=== PATIENT | male | born 1975 | race Caucasian/White ===

== ENCOUNTER 2017-02-10 13:13 | Observation (INO) | payer BC ==
[~2017-02-10] VITALS: Ht 180.3 cm; Wt 78.6 kg
[~2017-02-10 13:13] MED LIST: DOCU-144 PO; FAMO40TA52 PO; LIDO30JE5 TOP; MAG355OR15 PO
[2017-02-10] MEDS ORDERED: ASPI-664 PO (14:03)
[2017-02-10] MEDS ORDERED: NITROGLYCERIN 2% 1 GM OINT PKT TD STA (14:21)
[2017-02-10] MEDS ORDERED: ASPIRIN 325 MG TAB PO STA (14:21)
--- NOTE | 2017-02-10 14:44 | RADRPT ---
PROCEDURE: XR Chest. CLINICAL INDICATION: chest pain TECHNIQUE: Single frontal view of the chest was obtained COMPARISON: 10/10/14 FINDINGS: The heart and mediastinum are within normal limits. The lungs are clear. There is no pleural effusion or pneumothorax. RPTAT: AA IMPRESSION: No acute disease. .Michael Lynne MD, MD Date Time Electronically viewed and signed by .Michael Lynne MD, on 02/10/2017 14:44 .S/
[2017-02-10 14:46] LABS: BASOPHIL # 0.1 10^3/ul (0.0-0.1); EOSINOPHILS # 0.6 10^3/ul (0.0-0.5); EOSINOPHILS % 6.2 % (0.0-7.0); HEMATOCRIT 41.7 % (42.0-52.0); HEMOGLOBIN 14.3 g/dl (14.0-18.0); LYMPHOCYTES # 1.9 10^3/ul (0.8-2.9); MEAN CORPUSCULAR HEMOGLOBIN 32.4 pg (29.0-33.0); MEAN CORPUSCULAR HGB CONC 34.3 g/dl (32.0-37.0); MEAN CORPUSCULAR VOLUME 94.3 fl (82.0-101.0); MONOCYTE # 1.1 10^3/ul (0.3-0.9); MONOCYTES % 12.3 % (0.0-11.0); PLATELET COUNT 228 10^3/UL (140-415); RED BLOOD COUNT 4.42 10^6/ul (4.70-6.10); RED CELL DISTRIBUTION WIDTH 12.3 % (11.5-14.5); WHITE BLOOD COUNT 8.8 10^3/ul (4.8-10.8)
[2017-02-10 15:05] LABS: ALANINE AMINOTRANSFERASE 43 IU/L (13-69); ALBUMIN 4.2 g/dl (3.3-4.9); ALBUMIN/GLOBULIN RATIO 1.31; ALKALINE PHOSPHATASE 105 IU/L (42-121); ANION GAP 11 (8-16); ASPARTATE AMINO TRANSFERASE 29 IU/L (15-46); BILIRUBIN,INDIRECT 0.2 mg/dl (0-1.1); BILIRUBIN,TOTAL 0.2 mg/dl (0.2-1.3); BLOOD UREA NITROGEN 10 mg/dl (7-20); CALCIUM 9.1 mg/dl (8.4-10.2); CARBON DIOXIDE 29 mmol/L (21-31); CHLORIDE 106 mmol/L (97-110); CREATININE 0.89 mg/dl (0.61-1.24); GLUCOSE 97 mg/dl (70-220); POTASSIUM 4.1 mmol/L (3.5-5.1); SODIUM 142 mmol/L (135-144); TOTAL PROTEIN 7.4 g/dl (6.1-8.1)
[2017-02-10 15:20] LABS: TROPONIN-I < 0.012 ng/ml (0.00-0.12)
[2017-02-10] MEDS ORDERED: ONDANSETRON 4 MG INJ IV PRN (16:00)
[2017-02-10] MEDS ORDERED: ACETAMINOPHEN 325 MG TAB PO PRN (16:00)
--- NOTE | 2017-02-10 16:04 | ERA ---
ER Documentation Chief Complaint Date/Time DATE: 02/10/17 TIME: 16:02 Chief Complaint CHEST PAIN X 1 WEEK HPI This a 41-year-old male who is having chest pain off and on for the past 3 days. He says chest pain described as a pressure with radiation up his left neck and gets sort of breath. He says the pain can occur at rest or with exertion. No cardiac history. Risk factors are smoking he does not know what his cholesterol is. He currently has no pain but says the pain is moderate in nature and seems to be getting a bit worse. He went to his primary care physician today here for evaluation ROS All systems reviewed and are negative except as per history of present illness. Medications Home Meds Reported Medications Aspirin (Low Dose Aspirin) 81 Mg Tablet.dr, 81 MG PO DAILY, #30 TAB 02/10/17 Discontinued Scripts Lidocaine 2% Jelly* (Xylocaine 2% Jelly*) 1 Applic Jel, 1 APPLIC TOP TID for PAIN, #1 TUB Prov:KARLIE MCCARTHY MD 07/24/15 Mag Hydrox/Al Hydrox/Simeth (Maalox Ms Liquid) 360 Ml Oral.susp, 2 TSP PO TID, # 24 OZ Prov:KARLIE MCCARTHY MD 07/24/15 Docusate Sodium* (Colace*) 100 Mg Capsule, 100 MG PO BID for CONSTIPATION, #30 CAP Prov:KARLIE MCCARTHY MD 07/24/15 Famotidine* (Famotidine*) 40 Mg Tablet, 40 MG PO DAILY, #30 TAB Prov:KARLIE MCCARTHY MD 07/24/15 Allergies Allergies: Coded Allergies: No Known Allergy (Unverified , 02/10/17) PMhx/Soc History of Surgery: No Anesthesia Reaction: No Hx Neurological Disorder: No Hx Respiratory Disorders: No Hx Cardiac Disorders: No Hx Psychiatric Problems: No Hx Miscellaneous Medical Probl: Yes (hemmroids ) Hx Alcohol Use: No Hx Substance Use: No Hx Tobacco Use: No Smoking Status: Never smoker FmHx Family History: No coronary disease Physical Exam Vitals Vital Signs Date Time Temp Pulse Resp B/P Pulse Ox O2 Delivery O2 Flow Rate FiO2 02/10/17 14:32 Nasal Cannula 2 02/10/17 13:19 98.0 99 18 125/75 98 Physical Exam Const: Well-developed, well-nourished Head: Atraumatic, normocephalic Eyes: Normal Conjunctiva, PERRLA, EOMI, normal sclera, no nystagmus ENT: Normal External Ears, Nose and Mouth, moist mucus membranes. Neck: Full range of motion. No meningismus, no lymphadenopathy. Resp: Clear to auscultation bilaterally, no wheezing, rhonchi, rales Cardio: Regular rate and rhythm, no murmurs, S1 S2 present Abd: Soft, non tender x 4, non distended. Normal bowel sounds, no guarding or rebound, no pulsitile abdominal masses or bruits Skin: No petechiae or rashes, no ecchymosis , no maculopapular rash Back: No midline or flank tenderness Ext: No cyanosis, or edema, FROM x 4, normal inspection, neurovascularly intact x 4 Neur: Awake and alert, STR 5/5 x 4, sensation intact x 4, no focal findings, cerebellum intact Psych: Normal Mood and Affect Result Diagram: 02/10/17 1435 02/10/17 1435 Results 24 hrs Laboratory Tests Test 02/10/17 14:35 White Blood Count 8.810^3/ul Red Blood Count 4.4210^6/ul Hemoglobin 14.3g/dl Hematocrit 41.7% Mean Corpuscular Volume 94.3fl Mean Corpuscular Hemoglobin 32.4pg Mean Corpuscular Hemoglobin Concent 34.3g/dl Red Cell Distribution Width 12.3% Platelet Count 08247^3/UL Mean Platelet Volume 10.0fl Neutrophils % 57.0% Lymphocytes % 22.0% Monocytes % 12.3% Eosinophils % 6.2% Basophils % 1.0% Nucleated Red Blood Cells % 0.0/100WBC Neutrophils # 5.010^3/ul Lymphocytes # 1.910^3/ul Monocytes # 1.110^3/ul Eosinophils # 0.610^3/ul Basophils # 0.110^3/ul Nucleated Red Blood Cells # 0.010^3/ul Sodium Level 142mmol/L Potassium Level 4.1mmol/L Chloride Level 106mmol/L Carbon Dioxide Level 29mmol/L Anion Gap 11 Blood Urea Nitrogen 10mg/dl Creatinine 0.89mg/dl Glucose Level 97mg/dl Calcium Level 9.1mg/dl Total Bilirubin 0.2mg/dl Direct Bilirubin 0.00mg/dl Indirect Bilirubin 0.2mg/dl Aspartate Amino Transf (AST/SGOT) 29IU/L Alanine Aminotransferase (ALT/SGPT) 43IU/L Alkaline Phosphatase 105IU/L Troponin I < 0.012ng/ml Total Protein 7.4g/dl Albumin 4.2g/dl Globulin 3.20g/dl Albumin/Globulin Ratio 1.31 Current Medications Medications (Trade) Dose Ordered Sig/Erick Route PRN Reason Start Time Stop Time Status Last Admin Dose Admin Aspirin (Aspirin) 325 mg ONCE STAT PO 02/10/17 14:21 02/10/17 14:23 DC 02/10/17 14:34 Nitroglycerin (Nitroglycerin 2% Oint) 1 inch ONCE STAT TD 02/10/17 14:21 02/10/17 14:23 DC 02/10/17 14:35 Procedures/MDM PROCEDURE: XR Chest. CLINICAL INDICATION: chest pain TECHNIQUE: Single frontal view of the chest was obtained COMPARISON: 10/10/14 FINDINGS: The heart and mediastinum are within normal limits. The lungs are clear. There is no pleural effusion or pneumothorax. RPTAT: AA IMPRESSION: No acute disease. .Michael Lynne MD, MD Date Time Electronically viewed and signed by .Michael Lynne MD, MD on 02/10/2017 14: 44 .S/ CC: MANDA BAILEY DO EKG: Rate/Rhythm: Normal sinus rhythm, inverted T-wave in lead III QRS, ST, QT: NORMAL NM, QRS, QT] Impression: ab NORMAL EKG Patient's symptoms are concerning for cardiac cause will require inpatient workup and continuous monitoring. Further w/u for ischemia, arrhythmia, PE or dissection will be deferred to the inpatient team. Accepting Care Team: Current data and ongoing care discussed. Time: Time of admission Primary Provider: Cristiano Consulting: NICOLE Outstanding Data: none Departure Diagnosis: Primary Impression: Chest pain Qualified Code: R07.9 - Chest pain, unspecified type Condition: Stable LYNN,APOSTOLOS A. DO Feb 10, 2017 16:04
[2017-02-10 16:23] VITALS: TEMP 98.4
[2017-02-10 16:45] VITALS: BP 111/59; PULSE 81; RESP 18
[2017-02-10] MEDS ORDERED: ACETAMINOPHEN 500 MG TAB PO PRN (17:00)
[2017-02-10] MEDS ORDERED: ZOLPIDEM 5 MG TAB PO PRN (17:00)
[2017-02-10] MEDS ORDERED: LORAZEPAM 0.5 MG TAB PO PRN (17:00)
[2017-02-10] MEDS ORDERED: NITROGLYCERIN (SL) 0.4 MG TAB SL PRN (17:00)
[2017-02-10 17:07] VITALS: Ht 180.3 cm; Wt 78.6 kg
[2017-02-10] MEDS ORDERED: PANTOPRAZOLE (EC) 40 MG TAB PO SCH (18:30)
[2017-02-10] MEDS ORDERED: ATORVASTATIN 40 MG TAB PO ONE (18:30)
[2017-02-10] MEDS: HYDROCODONE/APAP (5/325) TAB PO PRN ×2 (18:54→23:36)
[2017-02-10] MEDS: ENOXAPARIN 40 MG/0.4 ML SYG SC SCH (18:59)
[2017-02-10 20:00] VITALS: BP 99/65; PULSE 72; RESP 16
--- NOTE | 2017-02-10 20:09 | HP ---
DATE OF ADMISSION: 02/10/2017 HISTORY OF PRESENT ILLNESS: The patient is a 41-year-old, gentleman who presented to my office with complaints of recurrent retrosternal chest pain described as pressure, occasional radiation to the left neck along with shortness of breath lasting for few seconds to a minute. Not associated with exertion. The patient was referred to the emergency room from there he was admitted. The patient states he has been on some degree of stress recently. He has never had any chest pains before. The patient has started taking aspirin 81 mg for the past several days since he started having the chest pain. ALLERGIES: NO KNOWN ALLERGIES. REVIEW OF SYSTEMS: HEAD: No history of headaches, focal weakness or numbness. EYES: No blurry vision or glaucoma. ENT: Noncontributory. NECK: No history of thyroid disease. CHEST: Chest the patient smokes half pack a day for the last 20+ years. He was first seen by me about a year ago for abdominal discomfort and at that time lipid panel showed good lipid range. HEART: No prior history of chest pains. No prior history of MN. No definite history of hyperlipidemia and smoking history as above. GASTROINTESTINAL: History of GERD. No history of GI bleed. History of hemorrhoids. GENITOURINARY: No dysuria, hematuria, or kidney stones. FAMILY HISTORY: Negative for diabetes, hypertension or coronary artery disease. Seven siblings normally healthy. PHYSICAL EXAMINATION: GENERAL APPEARANCE: Patient is an average built male, who is presently in no acute distress. VITAL SIGNS: Blood pressure 124/75, respiratory 20 per minute. HEENT: Head normocephalic. No pallor, cyanosis, or icterus. Tongue is moist. NECK: Supple. No thyromegaly, bruits, or lymphadenopathy. CHEST: Clinically clear. No tenderness on palpation of the chest wall. No rash evident. HEART: S1, S2. No definite gallops or murmurs. ABDOMEN: Soft, nontender. No hepatosplenomegaly. EXTREMITIES: No edema. Maxim's sign is negative. NEUROLOGIC: No localizing or lateralizing signs. RECTAL: Deferred at this time. LABORATORY AND DIAGNOSTIC DATA: WBC count 8.8, hematocrit 41.7, and platelet count 228,000. Sodium 142, potassium 4.1, BUN 10, and creatinine 0.89. Troponin less than 0.012. Chest x-ray shows normal-sized heart. Lungs are clear. EKG shows Q waves in the inferior leads with T-wave inversions on lead 3. IMPRESSION: Chest pain, possible acute coronary syndrome (ACS), Q waves inferior wall myocardial infarction of uncertain duration. PLAN: We will admit to tele. Start the patient on aspirin, Lovenox, and nitrates. Get fasting lipid panel in a.m. along with CRP. We will obtain cardiac consultation with Dr. Mancini, and follow his recommendations. If the patient has been advised the need to stop smoking. We will also give 1 dose of statins tonight. Dictated By: Wilton Quinonez MD /lakisha/nishi /Document#: [id number]
[2017-02-10 20:35] VITALS: PULSE 64
[2017-02-11] VITALS (10 sets, daily range): BP systolic 96–117; BP diastolic 55–81; PULSE 50–93; RESP 16–18
[2017-02-11 07:40] LABS: BASOPHIL # 0.1 10^3/ul (0.0-0.1); EOSINOPHILS # 0.6 10^3/ul (0.0-0.5); EOSINOPHILS % 7.1 % (0.0-7.0); HEMATOCRIT 41.9 % (42.0-52.0); HEMOGLOBIN 13.9 g/dl (14.0-18.0); LYMPHOCYTES # 2.1 10^3/ul (0.8-2.9); LYMPHOCYTES % 24.5 % (15.0-51.0); MEAN CORPUSCULAR HEMOGLOBIN 31.7 pg (29.0-33.0); MEAN CORPUSCULAR HGB CONC 33.2 g/dl (32.0-37.0); MEAN CORPUSCULAR VOLUME 95.4 fl (82.0-101.0); MEAN PLATELET VOLUME 9.9 fl (7.4-10.4); MONOCYTE # 1.1 10^3/ul (0.3-0.9); NEUTROPHIL # 4.7 10^3/ul (1.6-7.5); NEUTROPHILS % 53.9 % (39.0-77.0); PLATELET COUNT 220 10^3/UL (140-415); RED BLOOD COUNT 4.39 10^6/ul (4.70-6.10); RED CELL DISTRIBUTION WIDTH 12.4 % (11.5-14.5); WHITE BLOOD COUNT 8.8 10^3/ul (4.8-10.8)
[2017-02-11 08:28] LABS: ANION GAP 10 (8-16); BLOOD UREA NITROGEN 13 mg/dl (7-20); CALCIUM 8.9 mg/dl (8.4-10.2); CARBON DIOXIDE 30 mmol/L (21-31); CHLORIDE 106 mmol/L (97-110); CHOL/HDL RATIO 5.3 RATIO; CHOLESTEROL 139 mg/dl (100-200); CREATININE 1.01 mg/dl (0.61-1.24); GLUCOSE 109 mg/dl (70-220); HDL CHOLESTEROL 26 mg/dl (27-67); POTASSIUM 3.9 mmol/L (3.5-5.1); SODIUM 142 mmol/L (135-144); TRIGLYCERIDES 152 mg/dl (0-149)
[2017-02-11 08:33] LABS: TROPONIN-I < 0.012 ng/ml (0.00-0.12)
[2017-02-11] MEDS ORDERED: ASPIRIN 81 MG TAB PO SCH (09:00)
--- NOTE | 2017-02-11 09:41 | CONS ---
Date/Time of Note Date/Time of Note DATE: 02/11/17 TIME: 09:32 Assessment/Plan Assessment/Plan Chief Complaint/Hosp Course Impression: Chest pain- atypical but recurrent r/o for ACS. RONNIE risk score of 1. has rf of smoking, low hdl and still with recurrent chest pain. would obtain stress echo to risk stratify. ok to cont statin/asa for now. if negative, consider nsaid treatment for possible msk pain. Smoking- d/w pt, recommend smoking cessation and use of gum/patch if needed d/w patient and Dr. Epps Problems: Consultation Date/Type/Reason Admit Date/Time Feb 10, 2017 at 16:01 Date of Consultation: Feb 11, 2017 Type of Consultation: cardiology Reason for Consultation chest pain Referring Provider: ALONSO QUINONEZ MD Hx of Present Illness 41 y.o. smoker without other cardiac history. pt with chest pain x 2-3 days, on/ off but lingering. mild in intensity, radiates to L neck/shoulder. pinching and pressure pain. no n/v, sob, palpitations, dizziness, syncope. 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 pt states lasts a few minutes then subsides, but does not go away completely. states he went home then to sleep, awoke with pain the next day. did went to see PCP Dr. Quinonez yesterday and still had pain and sent to ED. patient states pain still occurring on/off while in hospital. has had neg trop x 2, ekg with nsr, non specific inf q waves and twi in lead III. cxr negative for acute abnl on my review. pt denies previous hx of chest pain. denies any etoh or drug use. smoke 10 cigs/day. Constitutional: no complaints Eyes: no complaints ENT: no complaints Respiratory: no complaints Cardiovascular: chest pain Gastrointestinal: no complaints Genitourinary: no complaints Musculoskeletal: no complaints Skin: no complaints Neurologic: no complaints Endocrine: no complaints Lymphatic: no complaints Psychological: nl mood/affect, no complaints Immunologic: no complaints Past Medical History Smoker Past Surgical History denies Family History Significant Family History: other (denies family hx of cad) Social History Alcohol Use: none Smoking Status: Current every day smoker Drug Use: none Exam/Review of Systems Vital Signs Vitals Vital Signs Date Time Temp Pulse Resp B/P Pulse Ox O2 Delivery O2 Flow Rate FiO2 02/11/17 08:13 61 02/11/17 07:27 98.1 18 108/66 99 02/11/17 04:00 Room Air 02/10/17 14:32 2 Intake and Output 02/10/17 02/10/17 02/11/17 15:00 23:00 07:00 Intake Total 800 ml Balance 800 ml Exam Constitutional: alert, oriented, well developed Psych: nl mood/affect, no complaints Head: atraumatic, normocephalic Eyes: EOMI, nl conjunctiva, nl lids ENMT: nl external ears & nose, nl lips & teeth Neck: non-tender, supple, No jvd Respiratory: clear to auscultation, normal air movement Cardiovascular: nl pulses, other (+ ttp on l chest), regular rate and rhythm, No S3, No S4, No edema, No irregular rhythm, No jugular venous distention ( JVD), No systolic murmur Gastrointestinal: non-tender, soft Musculoskeletal: nl extremities to inspection, nl gait and stance Extremities: normal pulses, No calf tenderness Neurological: [employer] II-XII intact, nl mental status, nl speech, nl strength Skin: nl turgor Results Result Diagram: 02/11/1759 02/11/17 0659 Results 24 hrs Laboratory Tests Test 02/10/17 14:35 02/11/17 06:59 White Blood Count 8.8 # 8.8 Red Blood Count 4.42 L 4.39 L Hemoglobin 14.3 13.9 L Hematocrit 41.7 L 41.9 L Mean Corpuscular Volume 94.3 95.4 Mean Corpuscular Hemoglobin 32.4 31.7 Mean Corpuscular Hemoglobin Concent 34.3 33.2 Red Cell Distribution Width 12.3 12.4 Platelet Count 228 220 Mean Platelet Volume 10.0 # 9.9 Neutrophils % 57.0 53.9 Lymphocytes % 22.0 24.5 Monocytes % 12.3 H 12.0 H Eosinophils % 6.2 7.1 H Basophils % 1.0 1.0 Nucleated Red Blood Cells % 0.0 0.0 Neutrophils # 5.0 4.7 Lymphocytes # 1.9 2.1 Monocytes # 1.1 H 1.1 H Eosinophils # 0.6 H 0.6 H Basophils # 0.1 0.1 Nucleated Red Blood Cells # 0.0 0.0 Sodium Level 142 142 Potassium Level 4.1 3.9 Chloride Level 106 106 Carbon Dioxide Level 29 30 Anion Gap 11 10 Blood Urea Nitrogen 10 13 Creatinine 0.89 1.01 Glucose Level 97 109 Calcium Level 9.1 8.9 Total Bilirubin 0.2 Direct Bilirubin 0.00 Indirect Bilirubin 0.2 Aspartate Amino Transf (AST/SGOT) 29 Alanine Aminotransferase (ALT/SGPT) 43 Alkaline Phosphatase 105 Troponin I < 0.012 < 0.012 Total Protein 7.4 Albumin 4.2 Globulin 3.20 Albumin/Globulin Ratio 1.31 Triglycerides Level 152 H Cholesterol Level 139 LDL Cholesterol, Calculated 83 HDL Cholesterol 26 L Cholesterol/HDL Ratio 5.3 Medications Medications Current Medications Acetaminophen (Tylenol Tab) 500 mg Q4H PRN PO Headache/fever Last administered on 02/10/17 17:20; Admin Dose 500 MG; Start 02/10/17 at 17:00 Aspirin (Aspirin) 81 mg DAILY PO ; Start 02/11/17 at 09:00 Nitroglycerin (Nitroglycerin (Sl Tab) 0.4 Mg) 1 tab [id number] PRN SL Chest pain ; Start 02/10/17 at 17:00 Lorazepam (Ativan) 0.5 mg Q4H PRN PO Anxiety; Start 02/10/17 at 17:00 Zolpidem Tartrate (Ambien) 5 mg HS PRN PO INSOMNIA; Start 02/10/17 at 17:00 Enoxaparin Sodium (Lovenox) 40 mg DAILY SC Last administered on 02/10/17 18:59 ; Admin Dose 40 MG; Start 02/10/17 at 18:30 Acetaminophen/ Hydrocodone Bitart ([place] (5/325)) 1 tab Q4H PRN PO Pain Last administered on 02/10/17 23:36; Admin Dose 1 TAB; Start 02/10/17 at 19:00 Procedures Procedures ekg, cxr reviewed per hpi tele reviewed no events. hrs 50s-60s BRENNON SERNA Feb 11, 2017 09:41
[2017-02-11] MEDS: ENOXAPARIN 40 MG/0.4 ML SYG SC SCH (09:53)
--- NOTE | 2017-02-11 19:55 | DS ---
DATE OF ADMISSION: 02/10/2017 DATE OF DISCHARGE: 02/11/2017 FINAL DIAGNOSES: 1. Atypical chest pain. No evidence of acute myocardial infarction. Stress echo negative. 2. Prior history of smoking. 3. Low HDL. HOSPITAL COURSE: The patient is a 41-year-old gentleman, nondiabetic, nonhypertensive, presenting with 1-week history of chest pain radiating to the left neck and shoulder pain with some shortness of breath and the patient was evaluated in office, referred to the emergency room from where he was admitted. The patient was monitored overnight with serial troponins were negative. EKG initially showed Q-waves in 2, 3 and AVF, with nonspecific ST-T-wave changes. Repeat EKG was normal. The patient was seen by Dr. Mancini from a cardiology standpoint. Stress echo was performed which was negative for ischemia and patient was discharged home. Advised to take aspirin 81 mg by mouth daily. Advised to stop smoking. Recheck lipids for course of a month. The patient was also advised to rest at home for 3 days. Dictated By: Wilton Quinonez MD /lakisha/nishi /Document#: [id number]
--- NOTE | 2017-02-12 10:06 | RADRPT ---
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 Physician: LEN SERNA Quality: Adequate Procedures: Transthoracic echocardiogram with complete 2D, M-Mode, and Doppler examination. Indications: Chest Pain. 2D/M Mode Doppler Measurement Value Normal Ranges Measurement Value Normal Ranges AoR Diam MM 3.9 cm AV Peak Alberto 1.1 m/sec ACS MM 2.1 cm AV Peak PG 4.8 mmHg LVIDd 2D 5.5 3.5 - 5.6 cm LVOT Peak Alberto 1.0 m/sec LVIDs 2D 3.8 2.1 - 4.1 cm LVOT Peak PG 3.7 mmHg LVPWd 2D 0.8 0.6 - 1.1 cm MV E Peak Alberto 0.6 m/sec IVSd 2D 0.9 0.6 - 1.1 cm MV A Peak Alberto 0.4 m/sec EDV 2D 146.1 cm3 MV E/A 1.3 ESV 2D 55.4 cm3 MV Decel Time 200 msec LA Dimen 2D 3.4 2.3 - 4.0 cm MV Decel [place] 3 MV E/A 1.3 TR Peak Alberto 2.3 m/sec TR Peak PG 20.3 mmHg PV Peak Alberto 0.9 m/sec PV Peak PG 4.0 mmHg RVSP 23.3 mmHg Findings Left Ventricle: Normal left ventricular systolic function. Normal left ventricular cavity size. Normal left ventricular wall thickness. Ejection fraction is visually estimated at 60 %. Tissue Doppler/Mitral Doppler indices are within normal limits. E/E`=4. Right Ventricle: Normal right ventricular size. Normal right ventricular systolic function. Left Atrium: The left atrium is normal in size. Right Atrium: The right atrium is normal in size. Atrial Septum: Normal atrial septum. Mitral Valve: Normal appearance and function of the mitral valve with trace physiologic regurgitation. Aortic Valve: No significant aortic stenosis or insufficiency. Normal trileaflet aortic valve structure. Trileaflet aortic valve. Tricuspid Valve: Normal appearance of the tricuspid valve. Normal right ventricular systolic pressure. Estimated peak PA systolic pressure 23 mmHg. There is mild tricuspid regurgitation. Pulmonic Valve: Normal pulmonic valve appearance. There is trace pulmonic regurgitation. Pericardium: Normal pericardium with no significant pericardial effusion. Aorta: Normal aortic root. Ascending Aorta 3 cm. Sinus of valsalva: 4 cm. Sinotubular junction: 3 cm. IVC: Normal size and normal respiratory collapse consistent with normal right atrial pressure. Pulmonary Artery: Normal pulmonary artery size. Conclusions 1.Normal left ventricular systolic function. Normal left ventricular cavity size. Normal left ventricular wall thickness. Ejection fraction is visually estimated at 60 %. Tissue Doppler/Mitral Doppler indices are within normal limits. E/E`=4. 2.No significant aortic stenosis or insufficiency. Normal trileaflet aortic valve structure. Trileaflet aortic valve. 3.Normal appearance of the tricuspid valve. Normal right ventricular systolic pressure. Estimated peak PA systolic pressure 23 mmHg. There is mild tricuspid regurgitation. 4.Normal aortic root size. 5.Normal size and normal respiratory collapse consistent with normal right atrial pressure. 6.No Vegetation, masses, or thrombi seen. 7.Stress echo:. 8.Resting ECG: NSR, non specific TWI. 9.Patient with good functional status, no chest pain with stress. mild sob noted at peak stress. 10.Normal BP response to stress. 11.No Arrhythmias with stress. 12.Stress ECG: no ischemic st changes with stress. 13.Stress Echo: no ischemia with stress, normal augmentation of all well segments with post stress ejection fraction of > 70%. 14.Low risk stress test without evidence of ischemia good functional capacity for age without chest pain with stress. Electronically Signed By: Len Serna 12-Feb-2017 10:05:07 [id number] Patient Name: SOLOMON VEGA Study Date: 11-Feb-2017 [id number]
--- NOTE | 2017-02-12 15:46 | RADRPT ---
Vent Rate: 0 bpm RR Interval: 0 msec SD Interval: 0 msec QRS Duration: 0 msec QT Interval: 0 msec QTC Interval: 388 msec P-R-T [place]: 60 - 70 - 36 degrees Electronically Signed By: Steve Daniel [id number]
== END 2017-02-11 16:41 | disposition home or self-care (01) ==
LOC: E/R 13:13 → EEVIPCON 16:01 → MS4 16:01 → UNDODISOB 02-11 16:41
PROVIDERS: ADMIT Internal Medicine; ATTEND Internal Medicine
DX: R07.89 Other chest pain (principal); Z79.82 Long term (current) use of aspirin; Z87.891 Personal history of nicotine dependence
CPT/HCPCS: 36415; 71010; 80048; 80053; 80061; 84484; 85025; 93005; 93306; 93350; 96372; 99285; G0378; J1650